=== PATIENT | female | born 1955 | race Caucasian/White ===

== ENCOUNTER 2021-10-31 17:23 | Emergency (ER) | payer MEDICARE, BC ==
[~2021-10-31] VITALS: Ht 157.5 cm; Wt 110.5 kg
[2021-10-31] MEDS ORDERED: TRAZ1TAB11 (17:56)
[2021-10-31] MEDS ORDERED: ERYT-86 (17:56)
[2021-10-31] MEDS ORDERED: BUPR300T92 (17:56)
[2021-10-31] MEDS ORDERED: OMEP-173 (17:56)
[2021-10-31 22:05] VITALS: BP 169/87
== END 2021-10-31 22:06 | disposition home or self-care (01) ==
LOC: M ED 17:23
DX: M25.551 Pain in right hip (principal); W54.8XXA Other contact with dog, initial encounter; Y92.099 Unspecified place in other non-institutional residence as the place of occurrence of the external cause; E78.5 Hyperlipidemia, unspecified; Z88.8 Allergy status to other drugs, medicaments and biological substances